=== PATIENT | female | born 1960 ===

== ENCOUNTER 2023-02-17 07:15 | Day surgery (SDC) | payer OTHER ==
[~2023-02-17] VITALS: Ht 157.5 cm; Wt 88.5 kg
[2023-02-17] MEDS ORDERED: LIDOCAINE 2% 100 MG/5 ML UJET TP ONE (08:05)
[2023-02-17] MEDS ORDERED: fentaNYL citrate 0.05 MG/ML VIAL ONE (08:05)
[2023-02-17] MEDS ORDERED: fentaNYL citrate 0.05 MG/ML VIAL IVP ONE (09:00)
== END 2023-02-17 11:37 | disposition home or self-care (01) ==
LOC: MDS 07:15 → MMU 07:16 → MDS 11:37
PROVIDERS: ATTEND Internal Medicine Gastroenterology
DX: Z12.11 Encounter for screening for malignant neoplasm of colon (principal); K64.9 Unspecified hemorrhoids; E78.00 Pure hypercholesterolemia, unspecified; E05.90 Thyrotoxicosis, unspecified without thyrotoxic crisis or storm; I10 Essential (primary) hypertension; E66.9 Obesity, unspecified; Z79.899 Other long term (current) drug therapy
CPT/HCPCS: 45378; J3010